=== PATIENT | male | born 1985 | race Caucasian/White ===

== ENCOUNTER 2019-06-22 11:24 | Emergency (ER) | payer OTHER ==
[2019-06-22] MEDS ORDERED: NA CHLORIDE 0.9% 1,000 ML ONE (12:45)
[2019-06-22 13:27] LABS: Absolute Lymphocytes (CBC) 0.7 K/uL (0.7-4.9); Basophils % 0.3 % (0-1.3); Hematocrit 47.4 % (39.6-49.0); Lymphocytes % 8.8 % (15.3-44.8); MPV 9.9 fL (7.6-11.3)
[2019-06-22 13:42] LABS: Urine Blood TRACE (NEG); Urine Glucose NEGATIVE (NEG); Urine Protein 2+ (NEG); Urine Specific Gravity >1.030 (1.005-1.030); Urine pH 5.5 (5.0-7.0)
[2019-06-22 14:49] LABS: Albumin 4.2 g/dL (3.4-5.0); Bilirubin Direct 0.1 mg/dL (0-0.2); Bilirubin Total 0.5 mg/dL (0.2-1.0); Potassium 3.4 mmol/L (3.5-5.1); Protein, Total 8.3 g/dL (6.4-8.2)
[2019-06-22] MEDS ORDERED: METOCLOPRAMIDE 10 MG/2mL INJ ONE (15:43)
[2019-06-22] MEDS ORDERED: NA CHLORIDE 0.9% 100 ML IV ONE (15:43)
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
[2019-06-22 17:41] VITALS: TEMP 98.8
[2019-06-22 17:44] VITALS: BP 123/83; O2SAT 100
[2019-06-23 14:42] LABS: C.diff Antigen/Toxin Ag neg : Tox neg (NEG : NEG)
== END 2019-06-22 16:10 | disposition home or self-care (01) ==
LOC: ER 11:24
DX: R19.7 Diarrhea, unspecified (principal); H91.90 Unspecified hearing loss, unspecified ear
CPT/HCPCS: 96361; 85025; 80048; 36415; 80076; 81003; 87324; 83690; 87449; 87804 ×2; 96374; 99284; J2765; J7030

== ENCOUNTER 2019-06-23 16:28 | Emergency (ER) | payer OTHER ==
[2019-06-23] MEDS ORDERED: NA CHLORIDE 0.9% 1,000 ML ONE ×2 (16:46→17:15)
[2019-06-23 17:10] LABS: Absolute Lymphocytes (CBC) 1.1 K/uL (0.7-4.9); Basophils % 0.3 % (0-1.3); Lymphocytes % 13.4 % (15.3-44.8); MPV 9.8 fL (7.6-11.3); RBC Red Blood Cell Count 5.55 M/uL (4.33-5.43)
[2019-06-23] MEDS ORDERED: ONDANSETRON 4 MG/2 ML VIAL ONE (17:15)
[2019-06-23] MEDS ORDERED: FAMOTIDINE 20 MG/2 ML VIAL IV ONE (17:15)
[2019-06-23 17:29] LABS: ALT/SGPT 48 U/L (12-78); AST/SGOT 33 U/L (15-37); Alkaline Phosphatase 92 U/L (45-117); BUN Blood Urea Nitrogen 11 mg/dL (7-18); Bicarbonate 21 mmol/L (21-32); Bilirubin Direct 0.1 mg/dL (0-0.2); Bilirubin Total 0.4 mg/dL (0.2-1.0); Glucose Level 96 mg/dL (74-106); Lipase 153 U/L (73-393); Magnesium 2.1 mg/dL (1.8-2.4); Potassium 3.6 mmol/L (3.5-5.1); Protein, Total 8.2 g/dL (6.4-8.2); Sodium Level 141 mmol/L (136-145)
--- NOTE | 2019-06-23 17:44 | RAD REPORT ---
EXAM DESCRIPTION: CT - Abdomen Pelvis W Contrast - 06/23/2019 5:30 pm CLINICAL HISTORY: ABD PAIN COMPARISON: CT study November 2010 TECHNIQUE: Biphasic, helical CT imaging of the abdomen and pelvis was performed following 100 ml non -ionic IV contrast. Oral contrast was given. All CT scans are performed using dose optimization technique as appropriate and may include automated exposure control or mA/KV adjustment according to patient size. FINDINGS: No suspicious findings in the lung bases. The liver, spleen, and pancreas show no suspicious findings. Several small gallstones are seen. No ac gianna gallbladder process suspected. No biliary tree dilatation. Symmetric renal function is seen with no hydronephrosis or suspicious renal mass. No pyelonephritis o r acute parenchymal process. No bladder abnormalities. No adrenal abnormalities. No dilated bowel loops or bowel wall thickening. Several nondilated fluid-filled large and small marky l loops are present. No appendicitis findings. Pattern is nonspecific but may reflect a mild gastroen teritis. No free air, free fluid or inflammatory stranding. No hernia, mass or bulky lymphadenopathy . No suspicious bony findings. IMPRESSION: Mild enteritis pattern with no obstruction, free air or emergent finding. Cholelithiasis without evidence for acute cholecystitis.
[2019-06-23] MEDS ORDERED: DIPHENOX/ATROP SULF 1 TAB PO ONE (18:23)
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
[2019-06-23 19:25] VITALS: TEMP 98.9
[2019-06-23 19:28] VITALS: BP 108/77; O2SAT 100
--- NOTE | 2019-06-25 13:06 | EKG ---
Test Date: 2019-06-23 Test Time: 17:37:33 Record Clerk Salesperson: LUCIANA MEASUREMENT RESULTS: Intervals: Rate: 79 DC: 184 QRSD: 116 QT: 396 QTc: 454 [place]: P: 60 DC: 184 QRS: 49 T: 47 INTERPRETIVE STATEMENTS: Normal sinus rhythm Normal ECG No previous ECG available for comparison Electronically Signed On 06-25-19 13:03:57 CDT by Kane Welch
== END 2019-06-23 19:09 | disposition home or self-care (01) ==
LOC: ER 16:28
DX: R19.7 Diarrhea, unspecified (principal); H91.90 Unspecified hearing loss, unspecified ear; Z88.1 Allergy status to other antibiotic agents; Z88.5 Allergy status to narcotic agent
CPT/HCPCS: 96361; 93005; 87045; 85025; 80048; 36415; 83735; 80076; 87046; 83690; 74177; 96375; 96374; 99284; Q9967; J7030 ×2; J2405

== ENCOUNTER 2020-01-12 08:29 | Emergency (ER) | payer BC, OTHER ==
--- OUTSIDE RECORDS SUMMARY | 2020-01-12 08:31 | XMS REPORT ---
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 Problem Depressive disorder F32.9 Active Assessment Depressive disorder F32.9 Active Problem Mixed hearing loss H90.8 Active Problem Seasonal allergic rhinitis due to J30.1 Active pollen Medications Medication Code Code Instructions Start End Status Dosage System Date Date Bromaline DM NDC 0 Active not defined Montelukast ND 26552329455 10 MG Orally December Active 1 t ablet in Sodium Once a day 2017 the evening Fluoxetine HCl ND 94374109823 20 MG Orally May 25, Active 1 tablet Once a day 2018 Valtrex ND 11689990861 1 GM Orally December Active 1 tablet Once a day 2017 Lexapro ND 27048217960 20 MG Orally Active 1 table t Once a day Azopt ND 25588169719 1 % Ophthalmic Active 1 shaquille p into Three times a affected day eye Paroxetine HCl ND 70407625099 20 MG Orally May 25, Active 1 tablet in Once a day 2019 the morning Xalatan ND 26198930306 0.005 % Active 1 drop into Ophthalmic Once affected a day eye in the evening Results No Known Results Summary Purpose [employer] Submission
--- OUTSIDE RECORDS SUMMARY | 2020-01-12 08:31 | XMS REPORT ---
:1985 Author Organization [facility] t Address [address] [place] [address] Care Team Providers Name Role Phone Unavailable Unavailable Unavailable Problems Condition Condition Condition Status Onset Resolution Last Treatin g Comments Name Details Category Date Date Treatment Clinician Date Glaucoma Glaucoma Problem Active Herpesviral Herpesviral Problem Active gingivostom gingivostom atitis and atitis and pharyngoton pharyngoton sillitis sillitis Depressive Depressive Diagnosis Active disorder disorder Seasonal Seasonal Problem Active allergic allergic rhinitis rhinitis due to due to pollen pollen Mixed Mixed Problem Active hearing hearing loss loss Allergies, Adverse Reactions, Alerts Allergy Allergy Status Severity Reaction(s) Onset Inactive Treating C omments Name Type Date Date Clinician codeine Adverse Active vomiting Reaction Steroids Adverse Active increase Reaction pressure in eye Medications Ordered Filled Start Stop Current Ordering Indication Dosage Frequency Signature Comments Components Medication Medication Date Date Medication? Clinician (SIG) Name Name Fluoxetine Fluoxetine 0 Yes Pau 1 tablet HCl HCl 9-12 [place] 00:00: 00 Paroxetine Paroxetine 2018-0 Yes Pau 1 tablet HCl HCl 9-12 [place] in the 00:00: morning 00 Montelukast Montelukast 2017-0 Yes Pau 1 table t Sodium Sodium 4-05 [place] in the 00:00: evening 00 Valtrex Valtrex 2017-0 Yes Pau 1 tablet 4-04 [place] 00:00: 00 Azopt Azopt Yes Pau 1 drop [place] into affected eye Bromaline Bromaline Yes Pau not DM DM [place] defined Xalatan Xalatan Yes Pau 1 drop [place] into affected eye in the evening Lexapro Lexapro Yes Pau 1 tablet [place] Encounters Start End Encounter Admission Attending Care Care Encounter Date/Time Date/Time Type Type Clinicians Facility Department ID 2019-06-05 2019-06-05 [id number] 15:01:00 15:01:[address] [place] [facility] 2019-05-25 2019-05-25 [id number] 15:00:00 15:00:00 [facility] Medicine 2019-01-05 2019-01-05 [facility] [id number] 10:15:00 10:15:00 [facility] 2018-05-03 2018-05-03 [facility] [id number] 11:24:00 11:24:00 [facility] 2018-04-14 2018-04-14 [facility] [id number] 16:41:00 16:41:00 [facility] 2018-03-28 2018-03-28 [facility] [id number] 16:23:00 16:23:00 [facility] 2018-01-19 2018-01-19 [facility] [id number] 11:54:00 11:54:00 [facility] 2018-01-17 2018-01-17 [facility] [id number] 14:00:00 14:00:00 [facility] 2017-12-16 2017-12-16 [facility] [id number] 10:00:00 10:00:00 [facility]
[2020-01-12] MEDS ORDERED: ONDANSETRON 4 MG/2 ML VIAL ONE ×2 (09:01→09:37)
[2020-01-12] MEDS ORDERED: FENTANYL CITR 100 MCG/2 ML ONE (09:01)
[2020-01-12] MEDS ORDERED: FAMOTIDINE 20 MG/2 ML VIAL IV ONE (09:02)
[2020-01-12] MEDS ORDERED: NA CHLORIDE 0.9% 1,000 ML ONE (09:02)
[2020-01-12 09:11] LABS: Absolute Lymphocytes (CBC) 1.4 K/uL (0.7-4.9); Basophils % 0.6 % (0-1.3); Hematocrit 47.1 % (39.6-49.0); Lymphocytes % 22.9 % (15.3-44.8); MPV 10.4 fL (7.6-11.3); RBC Red Blood Cell Count 5.51 M/uL (4.33-5.43)
[2020-01-12 09:27] LABS: ALT/SGPT 29 U/L (12-78); AST/SGOT 13 U/L (15-37); Albumin 4.1 g/dL (3.4-5.0); Alkaline Phosphatase 87 U/L (45-117); BUN Blood Urea Nitrogen 15 mg/dL (7-18); Bicarbonate 19 mmol/L (21-32); Bilirubin Direct < 0.1 mg/dL (0-0.2); Bilirubin Total 0.5 mg/dL (0.2-1.0); Glucose Level 125 mg/dL (74-106); Lipase 181 U/L (73-393); Potassium 3.5 mmol/L (3.5-5.1); Protein, Total 8.2 g/dL (6.4-8.2); Sodium Level 139 mmol/L (136-145)
--- NOTE | 2020-01-12 09:30 | RAD REPORT ---
EXAM DESCRIPTION: CT - Stone Protocol - 01/12/2020 9:09 am CLINICAL HISTORY: FLANK PAIN, left-sided back pain, vomiting COMPARISON: Abdomen Pelvis W Contrast dated 06/23/2019 TECHNIQUE: Axial 5 mm thick images were obtained without oral or IV contrast. The [id number] span s the entirety of the system including uppermost abdomen and lung bases. All CT scans are performed using dose optimization technique as appropriate and may include automated exposure control or mA/KV adjustment according to patient size. FINDINGS: Mild to moderate hydronephrosis is present secondary to a 7 millimeter stone in the left m id ureter. No other obstructing or nonobstructing calculi. The obstructing stone has slightly spicula kenrick or irregular margins along the lateral and superior aspect. When viewed from a KUB projection, th e stone is positioned along the superior margin of the L4 left transverse process. No suspicious renal masses. Isodense masses and pyelonephritis are not excluded on a stone protocol C T scan. No significant adrenal finding. Urinary bladder is fully contracted precluding assessment. Imaged portions of the liver, spleen and pancreas show no suspicious findings on non-contrast imaging . Gallstones are present layering on the dependent portion of the gallbladder fundus. These have been previously seen. No active gallbladder or biliary tree process identified. No suspicious bowel findings. Appendix is normal. No hernia, mass or bulky lymphadenopathy noted. No free air, free fluid or inflammatory stranding. No significant bony abnormality. IMPRESSION: Left mid ureter 7 millimeter obstructing calculus with slightly spiculated or irregular margins along the superior and lateral aspect. Mild to moderate hydronephrosis is present proximal to the stone. No other obstructing or nonobstructing calculi. No other acute findings. When viewed from a KUB projection, the stone is positioned along the superior margin of the L4 left t ransverse process. Isodense masses and pyelonephritis are not excluded on stone protocol technique.
[2020-01-12] MEDS ORDERED: MORPHINE 4 MG/ML SYR ONE (09:31)
[2020-01-12] MEDS ORDERED: TAMSULOSIN 0.4 MG SR CAP ONE (09:37)
[2020-01-12] MEDS ORDERED: MAGNESIUM SULFATE 1 gm IVPB 1 GM/100 ML BAG IV ONE (09:37)
[2020-01-12] MEDS ORDERED: KETOROLAC 30 MG/ML INJ ONE (09:37)
[2020-01-12] MEDS ORDERED: CEFTRIAXONE/SWI 1gm 1 GM/10 ML SYR ONE (09:38)
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
[2020-01-12 11:22] LABS: Urine Blood 3+ (NEG); Urine Glucose NEGATIVE (NEG); Urine Protein 2+ (NEG)
[2020-01-12 11:25] LABS: Urine Bacteria 20-50 /HPF (NONE SEEN); Urine Culture Reflex Order REFLEXED; Urine RBC >50 /HPF (NONE SEEN)
[2020-01-12 12:04] VITALS: O2SAT 97
[2020-01-12 12:06] VITALS: BP 129/75; TEMP 97.9
== END 2020-01-12 11:45 | disposition home or self-care (01) ==
LOC: ER 08:29
DX: N20.1 Calculus of ureter (principal); Z88.1 Allergy status to other antibiotic agents; Z88.5 Allergy status to narcotic agent
CPT/HCPCS: 96365; 96368; 87088; 85025; 80048; 36415; 80076; 83690; 76377; 74176; 96375; 99284; J3010; J3475; J0696; J7030; J2405 ×2; 81003; 81015; 87086

== ENCOUNTER 2020-01-14 02:01 | Emergency (ER) | payer BC ==
--- OUTSIDE RECORDS SUMMARY | 2020-01-14 02:03 | XMS REPORT ---
[...] NDC 0 Active not defined Montelukast ND 54842606568 10 MG Orally December Active 1 t ablet in Sodium Once a day 2017 the evening Fluoxetine HCl ND 12312087922 20 MG Orally May 25, Active 1 tablet Once a day 2018 Valtrex ND 33684643065 1 GM Orally December Active 1 tablet Once a day 2017 Lexapro ND 27141469041 20 MG Orally Active 1 table t Once a day Azopt ND 75248546879 1 % Ophthalmic Active 1 shaquille p into Three times a affected day eye Paroxetine HCl ND 38529048856 20 MG Orally May 25, Active 1 tablet in Once a day 2019 the morning Xalatan ND 22680980108 0.005 % Active 1 drop into Ophthalmic Once affected a day eye in the evening Results No Known Results Summary Purpose eClinicalWorks Submission
--- OUTSIDE RECORDS SUMMARY | 2020-01-14 02:03 | XMS REPORT ---
:1985 Author Organization [facility] t Address [address] [place] [address] Care Team Providers Name Role Phone Unavailable [...] Yes Pau 1 tablet HCl HCl 9-12 [facility] 00:00: 00 Paroxetine Paroxetine 2018-0 Yes Pau 1 tablet HCl HCl 9-12 [facility] in the 00:00: morning 00 Montelukast Montelukast 2017-0 Yes Pau 1 table t Sodium Sodium 4-05 [facility] in the 00:00: evening 00 Valtrex Valtrex 2017-0 Yes Pau 1 tablet 4-04 [place] 00:00: 00 Azopt Azopt Yes Pau 1 drop [place] into affected eye Bromaline Bromaline Yes Pau not DM DM [facility] defined Xalatan Xalatan Yes Pau 1 drop [place] into affected eye in the evening Lexapro Lexapro Yes Pau 1 tablet [facility] Encounters Start End Encounter Admission Attending Care Care Encounter Date/Time Date/Time Type Type Clinicians Facility Department ID 2019-06-05 2019-06-05 [id number] 15:01:00 15:01:[address] [facility] Medicine 2019-05-25 2019-05-25 [id number] 15:00:00 15:00:00 [facility] 2019-01-05 2019-01-05 [facility] [id number] 10:15:00 10:15:00 [facility] 2018-05-03 2018-05-03 [facility] [id number] 11:24:00 11:24:00 [facility] 2018-04-14 2018-04-14 [facility] [id number] 16:41:00 16:41:00 [facility] 2018-03-28 2018-03-28 [facility] [id number] 16:23:00 16:23:00 [facility] 2018-01-19 2018-01-19 [facility] [id number] 11:54:00 11:54:00 [facility] 2018-01-17 2018-01-17 [facility] [id number] 14:00:00 14:00:00 [facility] 2017-12-16 2017-12-16 [facility] [id number] 10:00:00 10:00:00 [facility]
[2020-01-14] MEDS ORDERED: NA CHLORIDE 0.9% 1,000 ML ONE ×2 (03:04→06:40)
[2020-01-14] MEDS ORDERED: KETOROLAC 30 MG/ML INJ ONE (03:04)
[2020-01-14] MEDS ORDERED: ONDANSETRON 4 MG/2 ML VIAL ONE ×2 (03:05→06:42)
[2020-01-14 03:13] LABS: Absolute Lymphocytes (CBC) 1.3 K/uL (0.7-4.9); Basophils % 0.2 % (0-1.3); Hematocrit 44.9 % (39.6-49.0); Lymphocytes % 10.7 % (15.3-44.8); MPV 10.6 fL (7.6-11.3); RBC Red Blood Cell Count 5.27 M/uL (4.33-5.43)
[2020-01-14 03:28] LABS: Albumin 3.8 g/dL (3.4-5.0); Bilirubin Total 0.7 mg/dL (0.2-1.0); Potassium 3.9 mmol/L (3.5-5.1)
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
[2020-01-14] MEDS ORDERED: TAMSULOSIN 0.4 MG SR CAP ONE (05:22)
[2020-01-14] MEDS ORDERED: CEFTRIAXONE/SWI 1gm 1 GM/10 ML SYR ONE (05:22)
[2020-01-14 05:23] LABS: Urine Blood NEGATIVE (NEG); Urine Glucose NEGATIVE (NEG); Urine Protein 1+ (NEG); Urine Specific Gravity 1.025 (1.005-1.030)
[2020-01-14] MEDS ORDERED: NA CHLORIDE 0.9% 250 ML ONE (05:35)
[2020-01-14] MEDS ORDERED: LORazepam 2 MG/ML VIAL ONE (06:40)
[2020-01-14 07:12] VITALS: TEMP 97.9
[2020-01-14 07:16] VITALS: BP 114/75; O2SAT 98
--- NOTE | 2020-01-14 11:59 | RAD REPORT ---
EXAM DESCRIPTION: RAD - Abdomen 1 View (KUB) - 01/14/2020 3:28 am CLINICAL HISTORY: ABD PAIN Pain COMPARISON: Stone Protocol dated 01/12/2020 FINDINGS: The bowel gas pattern is non-obstructive. No evidence of free air or pneumatosis. Small ca lcification is seen to the left of the L4 transverse process likely a stone within the left ureter.
== END 2020-01-14 06:55 | disposition short-term general hospital (02) ==
LOC: ER 02:01
DX: N13.2 Hydronephrosis with renal and ureteral calculous obstruction (principal); Z88.1 Allergy status to other antibiotic agents; Z88.5 Allergy status to narcotic agent
CPT/HCPCS: 87088; 85025; 87086; 36415; 81003; 80053; 74018; J0696; J7030 ×3; J2405 ×2; 96374; 96375; 99285

== ENCOUNTER 2020-09-24 15:00 | Emergency (ER) | payer BC, OTHER ==
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
--- OUTSIDE RECORDS SUMMARY | 2020-09-24 15:09 | XMS REPORT | Clinical Summary ---
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 8 tablet escitalopram Take 20 mg by 0 Act anita oxalate (LEXAPRO) mouth nightly. 6 20 MG tablet UNKNOWN Allergy 0 Active medication 4 gtts orally 1 x daily. . lysine 1,000 mg Tab Take 1,000 mg 0 Discontinued by mouth 20 (Error) daily. traMADoL (ULTRAM) Take 1 tablet 16 tablet 0 01/16/20 Discontinued 50 mg tablet (50 mg total) 0 20 (Re order) by mouth every 6 (six) hours as needed for Pain for up to 4 days. Max Daily Amount: 200 mg phenazopyridine Take 1 tablet 10 tablet 0 01/16/20 Discontinued (PYRIDIUM) 200 MG (200 mg total) 0 20 (Reorder) tablet by mouth 3 (three) times daily as needed for Pain for up to 3 days. nitrofurantoin, Take 1 capsule 6 capsule 0 01/16/20 Discontinued macrocrystal-monohy (100 mg total) 0 20 (Reorder) drate, (MACROBID) by mouth 2 100 MG capsule (two) times daily for 3 days. tamsulosin (FLOMAX) Take 1 capsule 30 capsule 1 01/30 Discontinued 0.4 mg Cap 24 hr (0.4 mg total) 0 20 (Reorder) capsule by mouth daily. oxybutynin Take 1 tablet 30 tablet 1 01/16/20 Disco ntinued (DITROPAN-XL) 5 MG (5 mg total) 0 20 (Reorder) 24 hr tablet by mouth daily. oxybutynin Take 1 tablet 30 tablet 1 01/16/20 Disco ntinued (DITROPAN-XL) 5 MG (5 mg total) 0 20 (Reorder) 24 hr tablet by mouth daily as needed (For bladder spasms). nitrofurantoin, Take 1 capsule 6 capsule 0 01/19/20 macrocrystal-monohy (100 mg total) 0 20 drate, (MACROBID) by mouth 2 100 MG capsule (two) times daily for 3 days. oxybutynin Take 1 tablet 30 tablet 1 01/23/20 Disco ntinued (DITROPAN-XL) 5 MG (5 mg total) 0 20 (Error) 24 hr tablet by mouth daily as needed (For bladder spasms). phenazopyridine Take 1 tablet 10 tablet 0 01/19/20 (PYRIDIUM) 200 MG (200 mg total) 0 20 tablet by mouth 3 (three) times daily as needed for Pain for up to 3 days. tamsulosin (FLOMAX) Take 1 capsule 30 capsule 1 01/11 Discontinued 0.4 mg Cap 24 hr (0.4 mg total) 0 20 (Error) capsule by mouth daily. traMADoL (ULTRAM) Take 1 tablet 16 tablet 0 01/20/20 50 mg tablet (50 mg total) 0 20 by mouth every 6 (six) hours as needed for Pain for up to 4 days. Max Daily Amount: 200 mg nitrofurantoin, Take 1 capsule 6 capsule 0 01/29/20 macrocrystal-monohy (100 mg total) 0 20 drate, (MACROBID) by mouth 2 100 MG capsule (two) times daily for 3 days. phenazopyridine Take 1 tablet 10 tablet 2 01/29/20 (PYRIDIUM) 200 MG (200 mg total) 0 20 tablet by mouth 3 (three) times daily as needed for Pain for up to 3 days. Active Problems Problem Noted Date Nephrolithiasis 01/26/2020 Kidney stone 01/14/2020 Encounters Date Type Specialty Care Team Description 01/26/2020 Anesthesia Event Brandon Coronado MD 01/26/2020 Surgery Braydon Avilez CYSTOSCOPY,URET FAITH Ohara MD COPY W/ LITHOTR IPSY AND URETERAL ST ENT 01/26/2020 Hospital Encounter Braydon Avilez MD 01/23/2020 Hospital Encounter Pre-Admission Testing 01/16/2020 Anesthesia Event Ramona Ahumada MD Robinson, Kistreia Marche', MD 01/16/2020 Surgery Braydon Avilez CYSTOSCOPY,URET FAITH Ohara MD COPY W/ LASER LITHOTRIPSY 01/14/2020 - Hospital Encounter General Internal Braydon Avilez Left ureteral stone; 01/16/2020 Medicine MD Lev Renal colic on left side 01/14/2020 Travel after 09/24/2019 Social History Tobacco Use Types Packs/Day Years Used Date Never Smoker Smokeless Tobacco: Current User Chew, Snuff Tobacco Cessation: Ready to Quit: No; Co unseling Given: No Alcohol Use Drinks/Week oz/Week Comments Yes SOCIALLY Sex Assigned at Date Recorded Not on file Last Filed Vital Signs Vital Sign Reading Time Taken Comments Blood Pressure 131/85 01/26/2020 3:50 PM CDT Pulse 53 01/26/2020 3:50 PM CDT Temperature 36.7 C (98 F) 01/26/2020 3:50 PM CDT Respiratory Rate 18 01/26/2020 3:50 PM CDT Oxygen Saturation 96% 01/26/2020 3:50 PM CDT Inhaled Oxygen Concentration - - Weight 99.4 kg (219 lb 3.2 oz) 01/26/2020 11:00 AM CDT Height 182.9 cm (6') 01/26/2020 11:00 AM CDT Body Mass Index 29.73 01/26/2020 11:00 AM CDT Plan of Treatment Health Maintenance Due Date Last Done Comments PNEUMOCOCCAL VACCINE 0-64 YRS (1 of 2 - PCV13) 1990 LIPID PANEL 2019 INFLUENZA VACCINE (#1) 2020 Implants Implanted Type Area [employer] Device Shelf Model / Identifier Expiration Serial / Date Lot Contour Injection Stent Uro Stent Left: BOSTON 2020 [id number] / Implanted: Qty: 1 on 01/16/2020 by Braydon Anand MD at [facility] [employer] / [id number] Contour Injection Stent Left: [employer]ON 2020 [id number] / Implanted: Qty: 1 on 01/26/2020 by Braydon Anand MD at [facility] [employer] / [id number] Procedures Procedure Name Priority Date/Time Associated Comments Diagnosis FL FLUORO Routine 01/26/2020 2:41 Results for this NON-SPECIFIC UP TO 1 PM CDT procedu re are in HOUR the results section. STONE ANALYSIS Routine 01/26/2020 2:30 Results f or this PM CDT procedure are i n the results section. CYSTOSCOPY,URETEROSCO 01/26/2020 12:55 Kidney stone PY W/ LITHOTRIPSY AND PM CDT URETERAL STENT FL FLUORO Routine 01/16/2020 11:50 Results for this NON-SPECIFIC UP TO 1 AM CDT procedu re are in HOUR the results section. CYSTOSCOPY,RETROGRADE 01/16/2020 10:07 Kidney stones S AM CDT CYSTOSCOPY,INSERTION 01/16/2020 10:07 Kidney stones URETERAL STENTS AM CDT CYSTOSCOPY,URETEROSCO 01/16/2020 10:07 Kidney stones PY W/ LASER AM CDT LITHOTRIPSY URINALYSIS W/ Routine 01/16/2020 8:26 Results fo r this MICROSCOPIC AM CDT procedure are i n the results section. URINE CULTURE Routine 01/16/2020 8:26 Results fo r this AM CDT procedure are i n the results section. CBC W/PLT COUNT & STAT 01/16/2020 5:53 Result s for this AUTO DIFFERENTIAL AM CDT procedure are in the results section. PT/APTT Routine 01/16/2020 5:53 Results for this AM CDT procedure are i n the results section. CBC W/PLT COUNT & STAT 01/16/2020 5:53 Result s for this AUTO DIFFERENTIAL AM CDT procedure are in the results section. BASIC METABOLIC PANEL STAT 01/16/2020 5:53 Re sults for this (7) AM CDT procedure are i n the results section. CBC W/PLT COUNT & STAT 01/15/2020 4:08 Result s for this AUTO DIFFERENTIAL AM CDT procedure are in the results section. BASIC METABOLIC PANEL STAT 01/15/2020 4:08 Re sults for this (7) AM CDT procedure are i n the results section. CBC W/PLT COUNT & STAT 01/15/2020 4:08 Result s for this AUTO DIFFERENTIAL AM CDT procedure are in the results section. SARS-COV2/RT-PCR Routine 01/14/2020 12:09 Results for this ([facility]) PM CDT procedure are in the results section. after 09/24/2019 Results FL fluoro non-specific up to 1 hour (01/26/2020 2:41 PM CDT)Only the most recent of2 resultswithin the time period is included. Specimen Narrative Performed At FINAL REPORT [employer] TECHNIQUE: Intraoperative image(s) IMPRESSION: Indicative equipment was utilized for a procedure performed in the operating room. No interpretation was re quested. Please refer to the operative note and P ACS for more details regarding the procedure and findings. Signed: Jamil Bazzi MD Report Verified Date/Time: 01/26/2020 16:34:38 Reading Location: [facility] Radiology [facility] Room Procedure Note Interface, External Ris In - 01/26/2020 4:36 PM CDT FINAL REPORT TECHNIQUE: Intraoperative image(s) IMPRESSION: Indicative equipment was utilized for a procedure performed in the operating room. No interpretation was re quested. Please refer to the operative note and P ACS for more details regarding the procedure and findings. Signed: Jamil Bazzi MD Report Verified Date/Time: 01/26/2020 1 6:34:38 Reading Location: [facility] Performing Organization Address City/State/Zipcode Phone Number [employer] STONE ANALYSIS (01/26/2020 2:30 PM CDT) Stone Source LEFT RENAL STONE [facility] Nidus Not Observed [facility] Comment: INCORPORATED This test was developed and its analytical performance characteristics have been determined by [facility]. It has not been cleared or approved by [facility] FDA. This assay has been validated pursuant to the CLI A regulations and is used for clinical purposes. COMPONENT 1 See Below [facility] ([employer]) Comment: INCORPORATED Calcium Oxalate Dihydrate (Weddellite) 15% Calcium Oxalate Monohydrate (Whewellite) 70% Carbonate Apatite (Dahllite) 15% This test was developed and its analytical performance characteristics have been determined by [facility]. It has not been cleared or approved by [facility] FDA. This assay has been validated pursuant to the CLI A regulations and is used for clinical purposes. COMPONENT 2 DNR [facility] [facility] Stone Weight 0.008 g [facility] Specimen Calculus - Renal, Left Narrative Performed At This result has an attachment that is no t available. Performing Lab [facility] *[place] [facility], [address] [place] [id number] Sunitha Roque MD, PhD Performing Organization Address [facility]/State/Zipcode Phone Number [facility] [place] [address] [facility] Urinalysis w/Microscopic (01/16/2020 8:26 AM CDT) Color, UA Light Yellow [facility] Clarity, UA Clear [facility] Specific [place], 1.012 1.001 - 1.035 [facility] pH, UA 5.5 5.0 - 8.0 [facility] Protein, UA Negative Negative [facility] Glucose, UA Negative Negative [facility] Ketones, UA Negative Negative [facility] Bilirubin, UA Negative Negative [facility] Blood, UA Small (A) Negative [facility] Nitrite, UA Negative Negative [facility] Leukocytes, UA Negative Negative [facility] Urobilinogen, UA 0.2 0.2 - 1.0 mg/dL [facility] RBC, UA 6 /HPF [facility] WBC, UA 1 /HPF [facility] Mucus Rare [facility] Squam Epithel, UA <1 /HPF [facility] Specimen Source [facility] Specimen Urine Narrative Performed At Chief Clinical Officer ID - [auto] [facility] Chief Clinical Officer ID - tech Performing Organization Address [facility] Phone Number [address] [address] [place] Urine culture (01/16/2020 8:26 AM CDT) Pathologist Sig nature Result No growth [facility] [place] Specimen Urine - Urine (substance) Performing Organization Address City/[facility] Phone Number [address] [address] CENTER PT/aPTT (01/16/2020 5:53 AM CDT) Pathologist Sig nature Protime 14.4 (H) 11.9 - 14.2 seconds [facility] INR 1.2 <=5.9 [facility] PTT 33.2 22.5 - 36.0 seconds [facility] Specimen Blood Narrative Performed At Effective 02/08/2019: PT Reference Range [facility] Change New: 11.9-14.2 Previous: 11.7-14.7 RECOMMENDED COUMADIN/WARFARIN INR THERAPY RANGES STANDARD DOSE: 2.0-3.0 Includes: PROPHYLAXIS for venous thrombosis, systemic embolization; TREATMENT for venous thrombosis and/or pulmonary embolus. HIGH RISK: Target INR is 2.5-3.5 for patients wiht mechanical heart valves. Performing Organization Address City/[facility] Phone Number [address] [place] [address] CENTER CBC with platelet count + automated diff (01/16/2020 5:53 AM CDT)Only the most recent of2 resultswithin the time period is included. Pathologist Sig nature WBC 7.5 3.5 - 10.5 [facility] K/L [facility] RBC 4.64 4.63 - 6.08 [facility] M/L [facility] Hemoglobin 13.4 (L) 13.7 - 17.5 [facility] GM/DL [facility] Hematocrit 40.7 40.1 - 51.0 % [facility] MCV 87.7 79.0 - 92.2 fL [facility] MCH 28.9 25.7 - 32.2 pg [facility] MCHC 32.9 32.3 - 36.5 [facility] GM/[facility] RDW 12.3 11.6 - 14.4 % [facility] Platelets 161 150 - 450 K/CU [facility] MPV 11.5 9.4 - 12.4 fL [facility] nRBC 0 0 - 0 /100 WBC [facility] % Neutros 65 % [facility] % Lymphs 15 % [facility] % Monos 14 % [facility] % Eos 4 % [facility] % Baso 1 % [facility] # Neutros 4.87 1.78 - 5.38 [facility] # Lymphs 1.15 (L) 1.32 - 3.57 [facility] # Monos 1.08 (H) 0.30 - 0.82 [facility] # Eos 0.32 0.04 - 0.54 [facility]/L [facility] # Baso 0.04 0.01 - 0.08 [facility] K/L [facility] Immature 1 0 - 1 % [facility] Granulocytes-Relative [facility] Specimen Blood Performing Organization Address City/[facility]/Zipcode Phone Number [facility] [address] [place] [address] CENTER Basic Metabolic Panel (01/16/2020 5:53 AM CDT)Only the most recent of2 results within the time period is included. Sodium 140 136 - 145 meq/L [facility] Potassium 4.1 3.5 - 5.1 meq/L [facility] Chloride 112 (H) 98 - 107 meq/L [facility] CO2 23 22 - 29 meq/L [facility] BUN 13 7 - 21 mg/dL [facility] Creatinine 0.89 0.57 - 1.25 [facility] mg/dL [facility] Glucose 94 70 - 105 mg/dL [facility] Calcium 8.7 8.4 - 10.2 [facility] mg/dL [facility] EGFR 97Comment: ESTIMATED mL/min/1.73 sq [facility] GFR IS NOT m [facility] EMERGENCY DEPARTMENT ACCURATE [place] CREATININE CLEARANCE IN PREDICTING GLOMERULAR FILTRATION RATE. ESTIMATED GFR IS NOT APPLICABLE FOR DIALYSIS PATIENTS. Specimen Blood Narrative Performed At Chief Clinical Officer ID - PIAYA L [facility] Performing Organization Address City/State/Zipcode Phone Number [facility] [address] [place] [address] CENTER SARS-CoV2/RT-PCR ([facility] Ref [facility]) (01/14/2020 12:09 PM CDT) SARS-COV2/RT-PCR Negative Not Detected, [facility] Negative NON-INTERFACED REFERENCE LABS SARS-COV-2 CPL [facility] PERFORMING LAB NON-INTERFACED REFERENCE LABS Specimen Other - Nasopharyngeal wall structure (b edmar structure) Performing Organization Address City/State/Zipcode Phone Number [facility] NON-INTERFACED REFERENCE LABS after 09/24/2019 Insurance Payer Benefit Plan / Subscriber ID Effective Dates Phone Addre ss Type Group BLUE BCBS PPO POS [id number] 2020-Presen [phone] [id number] PPO CROSS/BLUE EPO CHOICE t 2 [facility] [id number] Advance Directives For more information, please contact: [phone] Code Status Date Activated Date Inactivated Comments Full Code 01/14/2020 9:35 AM 01/16/2020 6:23 PM This code status was determined by: Patient
--- OUTSIDE RECORDS SUMMARY | 2020-09-24 15:11 | XMS REPORT | Continuity of Care Document ---
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 Squam Epithel, UA (test <1 /HPF code = 82392-5) Specimen Source (test code = 2795) MATT (test code = MATT) Parking Meter Servicer ID - [auto]Parking Meter Servicer ID - tech Lab Interpretation (test Abnormal code = 23622-4) [facility] [id number] 09:18:00 Test Item Value Reference Range Interpretation Comments COLOR (BEAKER) (test code = 470) Light Yellow CLARITY (BEAKER) (test code = Clear 469) SPECIFIC GRAVITY UA (BEAKER) 1.012 1.001-1.035 (test code = 468) PH UA (BEAKER) (test code = 467) 5.5 5.0-8.0 PROTEIN UA (BEAKER) (test code = Negative Negative 464) GLUCOSE UA (BEAKER) (test code = Negative Negative 365) KETONES UA (BEAKER) (test code = Negative Negative 371) BILIRUBIN UA (BEAKER) (test code Negative Negative = 462) BLOOD UA (BEAKER) (test code = Small Negative A 461) NITRITE UA (BEAKER) (test code = Negative Negative 465) LEUKOCYTE ESTERASE UA (BEAKER) Negative Negative (test code = 466) UROBILINOGEN UA (BEAKER) (test 0.2 mg/dL 0.2-1.0 code = 463) RBC UA (BEAKER) (test code = 6 /HPF 519) WBC UA (BEAKER) (test code = 1 /HPF 520) MUCUS (BEAKER) (test code = Rare 1574) SQUAMOUS EPITHELIAL (BEAKER) < /HPF (test code = 516) SOURCE(BEAKER) (test code = 2795) Parking Meter Servicer ID - [auto]Parking Meter Servicer ID - techSARS-CoV2/RT-PCR ([facility]) 2020-01-16 09:04:00 Test Item Value Reference Range Interpretation Comments SARS-COV2/RT-PCR (test code = Negative Not Detected, Negative 96654-4) SARS-COV-2 PERFORMING LAB CPL (test code = 13878-4) [facility])2020-01-16 09:04:00 Test Item Value Reference Range Interpretation Comments SARS-COV2/RT-PCR (test code = Negative Not Detected, Negative 6233615) SARS-COV-2 PERFORMING LAB CPL (test code = 6478278) [id number] 06:36:00 Test Item Value Reference Range Interpretation Comments Protime (test code = 14.4 11.9- 14.2 H 5902-2) seconds INR (test code = 1.2 <=5.9 6301-6) PTT (test code = 33.2 22.5- 36.0 42551-2) seconds MATT (test code = MATT) Effective 02/08/2019: PT Reference Range ChangeNew: 11.9-14.2 Previous: 11.7-14.7 RECOMMENDED COUMADIN/WARFARIN INR THERAPY RANGESSTANDARD DOSE: 2.0-3.0 Includes: PROPHYLAXIS for venous thrombosis, systemic embolization; TREATMENT for venous thrombosis and/or pulmonary embolus.HIGH RISK: Target INR is 2.5-3.5 for patients wiht mechanical heart valves. Lab Interpretation Abnormal (test code = 43762-3) [facility][id number] 06:36:00 Test Item Value Reference Range Interpretation Comments PROTIME (BEAKER) (test code = 14.4 seconds 11.9-14.2 H 759) INR (BEAKER) (test code = 370) 1.2 <=5.9 PARTIAL THROMBOPLASTIN TIME 33.2 seconds 22.5-36.0 (BEAKER) (test code = 760) Effective 02/08/2019: PT Reference Range ChangeNew: 11.9-14.2 Previous: 11.7- 14.7RECOMMENDED COUMADIN/WARFARIN INR THERAPY RANGESSTANDARD DOSE: 2.0-3.0 Includes: PROPHYLAXIS for venous thrombosis, systemic embolization; TREATMENT for venous thrombosis and/or pulmonary embolus.HIGH RISK: Target INR is2.5-3.5 for patients wiht mechanical heart valves.Basic Metabolic [id number] 06:34:00 Test Item Value Reference Range Interpretation Comments Sodium (test code = 140 meq/L 522-342 6102-2) Potassium (test code = 4.1 meq/L 3.5-5.1 2823-3) Chloride (test code = 112 meq/L 98-107 H 2074-0) CO2 (test code = 23 meq/L -2027-9) BUN (test code = 13 mg/dL 7-21 3094-0) Creatinine (test code 0.89 mg/dL 0.57-1.25 = 2160-0) Glucose (test code = 94 mg/dL 70-105 2345-7) Calcium (test code = 8.7 mg/dL 8.4-10.2 85020-7) EGFR (test code = 97 mL/min/1.73 [place] [address]-1) NOT ACCURATE CREATININE CLEARANCE IN PREDICTING GLOMERULAR FILTRATION RATE . ESTIMATED GFR I S NOT APPLICABLE FOR DIALYSIS PATIENTS. MATT (test code = MATT) Parking Meter Servicer ID Shakir VIRAMONTES L Lab Interpretation Abnormal (test code = 37853-4) [facility] METABOLIC [id number] 06:34:00 Test Item Value Reference Range Interpretation Comments SODIUM (BEAKER) 140 meq/L 136-145 (test code = 381) POTASSIUM (BEAKER) 4.1 meq/L 3.5-5.1 (test code = 379) CHLORIDE (BEAKER) 112 meq/L 98-107 H (test code = 382) CO2 (BEAKER) (test 23 meq/L 22-29 code = 355) BLOOD UREA NITROGEN 13 mg/dL 7-21 (BEAKER) (test code = 354) CREATININE (BEAKER) 0.89 mg/dL 0.57-1.25 (test code = 358) GLUCOSE RANDOM 94 mg/dL 70-105 (BEAKER) (test code = 652) CALCIUM (BEAKER) 8.7 mg/dL 8.4-10.2 (test code = 697) EGFR (BEAKER) (test 97 mL/min/1.73 ESTIMA YEE GFR IS code = 1092) sq m NOT ACCURATE CREATININE CLEARANCE IN PREDICTING GLOMERULAR FILTRATION RATE . ESTIMATED GFR I S NOT APPLICABLE FOR DIALYSIS PATIEN TS. Parking Meter Servicer ID - WANDER LCBC with platelet count + automated [id number] 06:15:00 Test Item Value Reference Range Interpretation Comments WBC (test code = 6690-2) 7.5 3.5- 10.5 K/L RBC (test code = 789-8) 4.64 4.63- 6.08 M/L MCHC (test code = 786-4) 32.9 32.3- 36.5 GM/DL L Hematocrit (test code = 4544-3) 40.7 % 40.1-51 MCV (test code = 787-2) 87.7 fL 79-92.2 MCH (test code = 785-6) 28.9 pg 25.7-32.2 RDW (test code = 788-0) 12.3 % 11.6-14.4 Platelets (test code = 777-3) 161 150- 450 K/CU MM MPV (test code = 17571-7) 11.5 fL 9.4-12.4 nRBC (test code = 413) 0 0- 0 /100 WBC % Neutros (test code = 429) 65 % % Lymphs (test code = 430) 15 % % Monos (test code = 431) 14 % % Eos (test code = 432) 4 % % Baso (test code = 437) 1 % # Neutros (test code = 670) 4.87 1.78- 5.38 K/L # Lymphs (test code = 414) 1.15 1.32- 3.57 K/L L # Monos (test code = 415) 1.08 0.30- 0.82 K/L H # Eos (test code = 416) 0.32 0.04- 0.54 K/L # Baso (test code = 417) 0.04 0.01- 0.08 K/L Immature Granulocytes-Relative 1 % 0-1 (test code = 2801) Lab Interpretation (test code = Abnormal 80629-2) [facility] W/PLT COUNT & AUTO [id number] 06:15:00 Test Item Value Reference Range Interpretation Comments WHITE BLOOD CELL COUNT (BEAKER) 7.5 K/ L 3.5-10.5 (test code = 775) RED BLOOD CELL COUNT (BEAKER) 4.64 M/ L 4.63-6.08 (test code = 761) HEMOGLOBIN (BEAKER) (test code = 13.4 GM/DL 13.7-17.5 L 410) HEMATOCRIT (BEAKER) (test code = 40.7 % 40.1-51.0 411) MEAN CORPUSCULAR VOLUME (BEAKER) 87.7 fL 79.0-92.2 (test code = 753) MEAN CORPUSCULAR HEMOGLOBIN 28.9 pg 25.7-32.2 (BEAKER) (test code = 751) MEAN CORPUSCULAR HEMOGLOBIN CONC 32.9 GM/DL 32.3-36.5 (BEAKER) (test code = 752) RED CELL DISTRIBUTION WIDTH 12.3 % 11.6-14.4 (BEAKER) (test code = 412) PLATELET COUNT (BEAKER) (test 161 K/CU MM 150-450 code = 756) MEAN PLATELET VOLUME (BEAKER) 11.5 fL 9.4-12.4 (test code = 754) NUCLEATED RED BLOOD CELLS 0 /100 WBC 0-0 (BEAKER) (test code = 413) NEUTROPHILS RELATIVE PERCENT 65 % (BEAKER) (test code = 429) LYMPHOCYTES RELATIVE PERCENT 15 % (BEAKER) (test code = 430) MONOCYTES RELATIVE PERCENT 14 % (BEAKER) (test code = 431) EOSINOPHILS RELATIVE PERCENT 4 % (BEAKER) (test code = 432) BASOPHILS RELATIVE PERCENT 1 % (BEAKER) (test code = 437) NEUTROPHILS ABSOLUTE COUNT 4.87 K/ L 1.78-5.38 (BEAKER) (test code = 670) LYMPHOCYTES ABSOLUTE COUNT 1.15 K/ L 1.32-3.57 L (BEAKER) (test code = 414) MONOCYTES ABSOLUTE COUNT (BEAKER) 1.08 K/ L 0.30-0.82 H (test code = 415) EOSINOPHILS ABSOLUTE COUNT 0.32 K/ L 0.04-0.54 (BEAKER) (test code = 416) BASOPHILS ABSOLUTE COUNT (BEAKER) 0.04 K/ L 0.01-0.08 (test code = 417) IMMATURE GRANULOCYTES-RELATIVE 1 % 0-1 PERCENT (BEAKER) (test code = 2801) BASIC METABOLIC [id number] 05:34:00 Test Item Value Reference Range Interpretation Comments SODIUM (BEAKER) 139 meq/L 136-145 (test code = 381) POTASSIUM (BEAKER) 4.3 meq/L 3.5-5.1 (test code = 379) CHLORIDE (BEAKER) 110 meq/L 98-107 H (test code = 382) CO2 (BEAKER) (test 24 meq/L 22-29 code = 355) BLOOD UREA NITROGEN 13 mg/dL 7-21 (BEAKER) (test code = 354) CREATININE (BEAKER) 1.16 mg/dL 0.57-1.25 (test code = 358) GLUCOSE RANDOM 88 mg/dL 70-105 (BEAKER) (test code = 652) CALCIUM (BEAKER) 8.4 mg/dL 8.4-10.2 (test code = 697) EGFR (BEAKER) (test 72 mL/min/1.73 ESTIMA YEE GFR IS code = 1092) sq m NOT ACCURATE CREATININE CLEARANCE IN PREDICTING GLOMERULAR FILTRATION RATE . ESTIMATED GFR I S NOT APPLICABLE FOR DIALYSIS PATIEN TS. Parking Meter Servicer ID - PIAYA LCBC W/PLT COUNT & AUTO [id number] 05:23:00 Test Item Value Reference Range Interpretation Comments WHITE BLOOD CELL COUNT (BEAKER) 7.8 K/ L 3.5-10.5 (test code = 775) RED BLOOD CELL COUNT (BEAKER) 4.53 M/ L 4.63-6.08 L (test code = 761) HEMOGLOBIN (BEAKER) (test code = 13.1 GM/DL 13.7-17.5 L 410) HEMATOCRIT (BEAKER) (test code = 40.4 % 40.1-51.0 411) MEAN CORPUSCULAR VOLUME (BEAKER) 89.2 fL 79.0-92.2 (test code = 753) MEAN CORPUSCULAR HEMOGLOBIN 28.9 pg 25.7-32.2 (BEAKER) (test code = 751) MEAN CORPUSCULAR HEMOGLOBIN CONC 32.4 GM/DL 32.3-36.5 (BEAKER) (test code = 752) RED CELL DISTRIBUTION WIDTH 12.4 % 11.6-14.4 (BEAKER) (test code = 412) PLATELET COUNT (BEAKER) (test 151 K/CU MM 150-450 code = 756) MEAN PLATELET VOLUME (BEAKER) 12.0 fL 9.4-12.4 (test code = 754) NUCLEATED RED BLOOD CELLS 0 /100 WBC 0-0 (BEAKER) (test code = 413) NEUTROPHILS RELATIVE PERCENT 64 % (BEAKER) (test code = 429) LYMPHOCYTES RELATIVE PERCENT 17 % (BEAKER) (test code = 430) MONOCYTES RELATIVE PERCENT 13 % (BEAKER) (test code = 431) EOSINOPHILS RELATIVE PERCENT 5 % (BEAKER) (test code = 432) BASOPHILS RELATIVE PERCENT 1 % (BEAKER) (test code = 437) NEUTROPHILS ABSOLUTE COUNT 4.98 K/ L 1.78-5.38 (BEAKER) (test code = 670) LYMPHOCYTES ABSOLUTE COUNT 1.36 K/ L 1.32-3.57 (BEAKER) (test code = 414) MONOCYTES ABSOLUTE COUNT (BEAKER) 1.05 K/ L 0.30-0.82 H (test code = 415) EOSINOPHILS ABSOLUTE COUNT 0.35 K/ L 0.04-0.54 (BEAKER) (test code = 416) BASOPHILS ABSOLUTE COUNT (BEAKER) 0.04 K/ L 0.01-0.08 (test code = 417) IMMATURE GRANULOCYTES-RELATIVE 1 % 0-1 PERCENT (BEAKER) (test code = 2801)
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
[2020-09-24 17:26] VITALS: TEMP 98.9
[2020-09-24 17:27] VITALS: BP 127/85; O2SAT 99
== END 2020-09-24 17:21 | disposition home or self-care (01) ==
LOC: ER 15:00
DX: R51.9 Headache, unspecified (principal); V49.49XA Driver injured in collision with other motor vehicles in traffic accident, initial encounter; Z88.1 Allergy status to other antibiotic agents; Z88.5 Allergy status to narcotic agent
CPT/HCPCS: 70450; 72125; 99284

== ENCOUNTER 2021-09-29 08:38 | Day surgery (SDC) | payer BC ==
[2021-09-26 13:32] LABS: Absolute Lymphocytes (CBC) 1.6 K/uL (0.7-4.9); Hematocrit 46.3 % (39.6-49.0); Lymphocytes % 26.5 % (15.3-44.8); MPV 9.5 fL (7.6-11.3); RBC Red Blood Cell Count 5.38 M/uL (4.33-5.43)
[2021-09-26 13:44] LABS: BUN Blood Urea Nitrogen 13 mg/dL (7-18); Bicarbonate 26 mmol/L (21-32); Glucose Level 92 mg/dL (74-106); Potassium 4.6 mmol/L (3.5-5.1); Sodium Level 139 mmol/L (136-145)
[2021-09-29] MEDS ORDERED: Ringers Lactate 1,000 ML IV ONE (09:04)
[2021-09-29] MEDS ORDERED: MIDAZOLAM HCL 2 MG/2 ML INJ ONE (09:21)
[2021-09-29] MEDS ORDERED: GLYCOPYRROLATE 0.2 MG/ML SYR ONE (09:21)
[2021-09-29] MEDS ORDERED: propofoL 200 MG/20 ML VIAL IV ONE (09:21)
[2021-09-29] MEDS ORDERED: LIDOCAINE 2% MPF 5 ML VIAL ONE (09:22)
[2021-09-29] MEDS ORDERED: ROCURONIUM 50 MG/5 ML VIAL IV ONE (09:23)
[2021-09-29] MEDS ORDERED: ONDANSETRON 4 MG/2 ML VIAL ONE ×2 (09:24→11:11)
[2021-09-29] MEDS ORDERED: FENTANYL CITR 100 MCG/2 ML ONE (09:25)
[2021-09-29] MEDS ORDERED: CEFAZOLIN/NS 1gm 1 GM/50 ML BAG ONE (09:35)
[2021-09-29] MEDS ORDERED: BUPIVACAINE 0.5% PF 10 ML VIAL ONE (09:44)
[2021-09-29] MEDS ORDERED: CELECOXIB 100 MG CAPSULE ONE ×2 (09:49→09:54)
[2021-09-29] MEDS ORDERED: ACETAMINOPHEN 500 MG TAB ONE (09:50)
--- NOTE | 2021-09-29 11:05 | P.BOP ---
Preoperative diagnosis: intractable LLQ abd pain, epiploic appendagitis Postoperative diagnosis: same plus intrabdominal adhesions, necrotic epiploic appendagitis Primary procedure: Diagnostic laparoscopy, laparoscopic lysis of adhesions Secondary procedure: resection of necrotic epiploic appendagitis Chemical Reclamation Equipment Operator: Ludy De Leon Estimated blood loss: <10cc Specimen: necrotic epiploic appendagitis Findings: necrotic epiploic appendagitis, intrabominal adhesions Anesthesia: General Complications: None Transferred to: Recovery Room Condition: Good
[2021-09-29] MEDS: HYDROMORPHONE HCL 1 MG/ML INJ ONE ×4 (11:11→11:28)
[2021-09-29] MEDS ORDERED: HYDROMORPHONE HCL 1 MG/ML INJ ONE (11:37)
[2021-09-29] MEDS ORDERED: KETOROLAC 30 MG/ML INJ ONE (11:38)
--- NOTE | 2021-09-29 12:09 | OP ---
Date of Procedure: 09/29/2021 Surgeon: Chin Schilling MD Food Packer: Ludy Rosales. Preoperative Diagnoses: Intractable left lower quadrant abdominal pain, epiploic appendagitis, diver ticulum. Postoperative Diagnoses: Intractable left lower quadrant abdominal pain, epiploic appendagitis, plus intraabdominal adhesions, necrotic epiploic appendagitis. Procedures: 1.Diagnostic laparoscopy. 2.Laparoscopic lysis of adhesions. 3.Resection of necrotic epiploic appendagitis, left lower quadrant. Findings: Necrotic epiploic appendagitis and intraabdominal adhesions in the left lower quadrant. Anesthesia: General plus local. Indication: This is the case of a male, who comes to us with left lower quadrant intractable abdomin al pain. It has been there for more than a week. He has history of epiploic appendagitis several ye ars ago, but he also has a history of diverticula. He has seen a colorectal surgeon, but he has not done any resection of that area. He presented with some intractable. We did a CAT scan, shows once again epiploic appendagitis, has not improved conservatively and he wants surgery to be done. So, we offered him diagnostic laparoscopy, possible resection of the epiploic appendagitis. The benefits, alternatives, and risks were fully explained, which include, but not limited to infection, bleeding, damage to adjacent structures, anesthesia complication, recurrence, PR, and even . He also unde rstands this may not relieve any symptoms. He might need more than one surgical intervention. He si gned a consent. He also advised to follow up with his colorectal surgeon for the history of divertic ular disease, although CAT scan does not show diverticulitis at this moment. Procedure In Detail: The patient was brought to the operating room, placed in supine position. Anes thesia was done without complication. Abdomen was prepped and draped in usual sterile fashion. A ti me-out was called. An incision was made in the infraumbilical region. The incision was carried down to fascia, which was opened under direct vision. Peritoneum was encountered, opened under direct vi surinder. Vicryl #1 placed inside the fascia. Rodriguez trocar was carefully introduced. Pneumoperitoneum was obtained. Initial evaluation of the diagnostic lap confirmed the findings of the CAT scan. The re is obviously a necrotic about 5 x 5 cm of epiploic appendagitis, black, attached to the anterior a bdominal wall with some hemorrhagic tissue present on it. Underneath near the bowel, there is a mini mal diverticulum, but I do not see any inflammation of the bowel at this moment. May be related to i t, may be that inflammation is coming down and causes the issue, but definitely we have a diagnosis o f a necrotic epiploic appendagitis, black, walnut sized a little bit better than that, a black tissue , attached to the anterior abdominal wall. With the help of LigaSure, we removed the adhesions prese nt around the area. Those adhesions may be due to his previous diverticulitis. Once we did lysis of adhesions with LigaSure, we were able to also use the same LigaSure to ligate this epiploic appendag itis and then the mass that was adhered to the anterior abdominal wall was peeled off. It peeled off nicely. Some hemorrhagic event present on the fat itself, but no active bleeding. Specimen put in an Endosac and removed through the umbilical incision. The area was inspected once again. No bowel leak. No bleeding. We had some diverticulum in the area, but I do not see any perforation. Maybe s ome inflammation next to the fat. It is difficult to rule out diverticulitis, that is why the patien t is on antibiotics. The patient tolerated the procedure well. At that moment, I proceeded to remov e the trocars under direct vision. Deflated pneumoperitoneum. Closed the fascia with #1 Vicryl. Ir rigated subcutaneous tissue, closed that with 3-0 chromic and the skin in a subcuticular fashion with 3-0 chromic and Steri-Strips on top. Sponge count and instrument counts correct. The patient tolerated the procedure well. The patient was sent to recovery in stable condition. SANDOR/ANDREIA Voice ID: [id number] Report ID: [id number]
--- NOTE | 2021-09-29 12:15 | DS ---
Diagnoses: Intractable left lower quadrant abdominal pain, epiploic appendagitis, epiploic necrotic appendagitis, intraabdominal adhesions. Procedures: Diagnostic laparoscopy, laparoscopic lysis of adhesions, resection of necrotic epiploic appendagitis. Disposition: Home. Activity: As tolerated. No heavy lifting. Plan: Follow up in my office in 1 week. Call for appointment at [phone]. Keep area dry for 48 curtis rs, then may shower. Keep Steri-Strip intact. Medications: Include Ultracet q.4 hours p.r.n. pain and Cipro. HM/MODL Voice ID: [id number] Report ID: [id number]
[2021-09-29] MEDS ORDERED: TRAMADOL 37.5mg/APAP 325mg PER TAB ONE (12:26)
[2021-09-29 12:55] VITALS: BP 99/62; TEMP 96.8; O2SAT 98
== END 2021-09-29 12:51 | disposition home or self-care (01) ==
LOC: OR 08:38
PROVIDERS: ATTEND Surgery
PROC: 0DBW4ZZ Excision of Peritoneum, Percutaneous Endoscopic Approach (ICD-10-PCS; principal; 2021-09-29 10:30)
DX: K63.89 Other specified diseases of intestine (principal); R10.32 Left lower quadrant pain; K57.90 Diverticulosis of intestine, part unspecified, without perforation or abscess without bleeding; I96 Gangrene, not elsewhere classified; K66.0 Peritoneal adhesions (postprocedural) (postinfection); U07.1 COVID-19
CPT/HCPCS: 49329; 85025; 80048; 36415; 88304; U0003; J2704; J2250; J3010; J1170 ×3; J0690; J7120; J2405 ×2; 88305

== ENCOUNTER 2024-03-22 07:49 | Emergency (ER) | payer BC ==
[2024-03-22] MEDS ORDERED: ONDANSETRON 4 MG/2 ML VIAL ONE (08:02)
[2024-03-22] MEDS ORDERED: KETOROLAC 30 MG/ML INJ ONE (08:02)
[2024-03-22] MEDS ORDERED: MORPHINE 4 MG/ML SYR ONE ×2 (08:02→10:21)
[2024-03-22 08:22] LABS: Absolute Eosinophils 0.2 K/uL (0-0.5); Absolute Lymphocytes (CBC) 1.9 K/uL (0.7-4.9); Absolute Monocytes 0.7 K/uL (0.1-1.3); Basophils % 0.4 % (0-1.3); Eosinophils % 2.7 % (0-4.4); Hematocrit 44.8 % (39.6-49.0); Hemoglobin 14.9 g/dL (13.6-17.9); Lymphocytes % 33.7 % (15.3-44.8); MCH 29.2 pg (27.0-35.0); MCHC 33.3 g/dL (32.0-36.0); MCV 87.8 fL (80-100); MPV 9.6 fL (7.6-11.3); Monocytes % 11.5 % (3.3-12.3); Neutrophils % 51.7 % (41.7-73.7); Nucleated Red Blood Cells % 0.1 % (0-0); Platelets 230 thou/uL (152-406); Red Cell Distribution Width 13.1 % (12.1-15.2)
--- NOTE | 2024-03-22 08:39 | RAD REPORT ---
EXAM DESCRIPTION: CT - Stone Protocol - 03/22/2024 8:13 am CLINICAL HISTORY: Abdominal pain. COMPARISON: 2011 TECHNIQUE: Computed axial tomography of the abdomen pelvis was obtained without oral or IV contrast. Lack of IV and oral contrast limits evaluation of solid organs, appendix, bowel, and vessels. Arshad l reformatted images were obtained and reviewed. All CT scans are performed using dose optimization technique as appropriate and may include automated exposure control or mA/KV adjustment according to patient size. FINDINGS: Mild to moderate right hydronephrosis. Right ureter is dilated. 3 millimeter calculus mid to distal right ureter Small left renal calculi. No hydronephrosis. Sub centimeter dense cystic mass left kidney likely lisy gn. Gallstones. Normal appendix. No evidence of diverticulitis The subcentimeter hepatic lesion nonspecific but probably benign. Spleen, pancreas and left adrenal gland grossly normal 9 millimeter nodule right adrenal gland unchanged from 2011. Hounsfield unit 9. This represents an ad enoma. No follow-up imaging recommended IMPRESSION: 3 millimeter calculus mid to distal right ureter resulting [id number] right hydron ephrosis
[2024-03-22] MEDS ORDERED: CEFTRIAXONE 1000 MG/VIAL ONE (08:42)
[2024-03-22] MEDS ORDERED: NA CHLORIDE 0.9% 1,000 ML ONE (08:42)
[2024-03-22] MEDS ORDERED: TAMSULOSIN 0.4 MG SR CAP ONE (08:42)
[2024-03-22 08:47] LABS: ALT/SGPT 21 U/L (16-61); Albumin 4.1 g/dL (3.4-5.0); Albumin/Globulin Ratio 1.1 (1.1-1.8); Alkaline Phosphatase 84 U/L (45-117); Anion Gap 11.5 mEq/L (5.0-15.0); BUN Blood Urea Nitrogen 22 mg/dL (7-18); Bicarbonate 20 mEq/L (21-32); Bilirubin Total 0.6 mg/dL (0.2-1.0); Globulin 3.9 g/dL (2.3-3.5); Glomerular Filtration Rate 87 ml/min (=/>90); Glucose Level 134 mg/dL (74-106); Lipase 44 U/L (13-75); Potassium 3.5 mEq/L (3.5-5.1); Sodium Level 138 mEq/L (136-145)
[2024-03-22 08:48] LABS: AST/SGOT < 10 U/L (15-37)
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
[2024-03-22 10:40] LABS: Specific Gravity > 1.030 (1.005-1.030); Sqamous Epithelial <5 /HPF (None Seen); Urine Bacteria <20 /HPF (<20); Urine Bilirubin NEGATIVE (Negative); Urine Blood 3+ (OVER) (Negative); Urine Clarity Extremely Turbid (Clear); Urine Color Light-Orange (Yellow); Urine Culture Reflex Order NOT NEEDED; Urine Glucose NEGATIVE (Negative); Urine Ketones 2+ (Negative); Urine Microscopic Reflex YN ORDER UMIC; Urine Mucus 4+ /HPF (None Seen); Urine Nitrite NEGATIVE (Negative); Urine Protein 2+ (Negative); Urine RBC >50 /HPF (None Seen); Urine Urobilinogen Normal (Normal); Urine WBC <5 /HPF (<5); Urine pH 5.5 (5.0-7.0)
[2024-03-22 11:05] VITALS: BP 133/79; TEMP 97.3; O2SAT 100
--- NOTE | 2024-03-27 16:48 | EKG ---
Test Date: 2024-03-22 Test Time: 07:55:57 Factory Worker: SHANI MEASUREMENT RESULTS: Intervals: Rate: 59 ID: [id number] QRSD: 110 QT: 484 QTc: 479 [place]: P: 66 ID: [id number] QRS: 50 T: 61 INTERPRETIVE STATEMENTS: Sinus bradycardia with marked sinus arrhythmia Otherwise normal ECG Compared to ECG 06/23/2019 17:37:33 Sinus rhythm no longer present Electronically Signed On 03-27-24 16:37:25 CDT by Dar Hicks
== END 2024-03-22 10:52 | disposition home or self-care (01) ==
LOC: ER 07:49
DX: N13.2 Hydronephrosis with renal and ureteral calculous obstruction (principal); Z87.442 Personal history of urinary calculi
CPT/HCPCS: 93005; 85025; 81001; 36415; 83690; 80053; 76377; 74176; 96375; 96374; 99284; J2405; J7030; J0696